=== PATIENT | male | born 1965 | race Caucasian/White ===

== ENCOUNTER 2022-01-31 09:46 | Outpatient (CLI) | payer BC, SELFPAY ==
[2022-01-31 10:35] LABS: Hematocrit 41.9 % (42.0-52.0); Hemoglobin 14.1 g/dL (14.0-18.0); Mean Corpuscular HGB Conc 33.7 g/dl (32-36); Mean Corpuscular Hemoglobin 30.9 pg (26-34); Mean Corpuscular Volume 91.9 fl (80-100); Mean Platelet Volume 10.1 fl (7.4-10.4); Platelet Count Result 253 k/mm3 (150-375); Red Blood Count 4.56 M/mm3 (4.6-6.20); Red Cell Distribution Width 13.5 % (11.5-14.5); White Blood Count 8.8 K/mm3 (4.5-10.0)
[2022-01-31 10:49] LABS: Alanine Aminotransferase 32 U/L (6-50); Albumin Level 4.2 g/dL (3.5-5.1); Alkaline Phosphatase 55 U/L (38-126); Anion Gap 9 mmol/L (8-16); Aspartate Amino Transferase 31 U/L (17-59); Bilirubin,Total 0.3 mg/dL (0.2-1.3); Blood Urea Nitrogen 18 mg/dL (9-20); CRP < 0.5 mg/dL (<1.0); Calcium 9.1 mg/dL (8.4-10.2); Carbon Dioxide 26 mmol/L (22-30); Chloride 104 mmol/L (98-107); Estimated Glomerular Filt Rate > 60; Glucose 105 mg/dL (65-110); Potassium 3.8 mmol/L (3.4-5.0); Sodium 139 mmol/L (137-145)
== END 2022-01-31 09:47 | disposition home or self-care (01) ==
LOC: ANHLAB 09:52
PROVIDERS: Visit Provider Nurse Practitioner
DX: R06.02 Shortness of breath (principal); F10.11 Alcohol abuse, in remission; R14.0 Abdominal distension (gaseous); R53.83 Other fatigue; R68.81 Early satiety
CPT/HCPCS: 36415; 80053; 84443; 85027; 86038; 86140

== ENCOUNTER 2022-03-06 01:44 | Day surgery (SDC) | payer BC, SELFPAY ==
[2022-02-22 08:17] VITALS: BMI 27.5
[2022-03-06 06:12] VITALS: BP 130/83; PULSE 68; RESP 16; TEMP 36.6; O2SAT 99; BMI 26.2
--- NOTE | 2022-03-06 06:35 | PM.HPGS ---
History of Present Illness History of Present Illness Consent: Risks, benefits, and alternatives have been discussed and questions answered. Patient agrees to proceed with procedure. Chief complaint: early satiety,abdominal distension Narrative: Andres White is a 57 year old male Who was being investigated for issues with early satiety and a significant amount of abdominal distension for about the last 2 months. He also has been fatigued and short of breath. A CT scan of the abdomen was done at another hospital that showed no significant abnormalities except that his stomach was distended with ingested contents. A surprisingly, he has not lost weight in fact reports a 30-35 lb weight loss. He is due for colon cancer screening. Review of Systems Review of Systems: All systems reviewed & are unremarkable except as noted in HPI and below PMFSH Past Medical History Medical History Decreased appetite History of ETOH abuse Tobacco abuse Surgical History Surgical History History of appendectomy Family History Family History Father Hypertension Heart disease Mother Hypertension Asthma Social History Social History Smoking packs per day: 1 Smoking cigarettes per day: 20.0 Years smoked: 40 Smoking pack-years: 40.00 Smoking status: Current every day smoker Tobacco type: cigarettes Second hand tobacco smoke exposure: Yes Alcohol intake: former Alcohol use details: Hx alcohol abuse Living arrangements: with family Gender identity (if verbalized by the patient): Male Spiritual care concerns: No Meds Home Medications and Allergies Home Medications Medication Instructions Recorded Confirmed Type furosemide 40 mg tablet (Lasix) 40 mg PO QAM 01/31/22 03/06/22 History quetiapine 50 mg tablet (Seroquel) 50 mg PO BID 01/31/22 03/06/22 History Allergies Allergy/AdvReac Type Severity Reaction Status Date / Time No Known Allergies Allergy Unknown Verified 03/06/22 06:21 Vital Signs Vital Signs - 24 hr 03/06/22 06:12 Temperature 36.6 C Pulse Rate 68 Respiratory Rate 16 Blood Pressure 130/83 Pulse Oximetry 99 Oxygen Delivery Room Air Exam Const: General: alert Orientation/consciousness: patient oriented x3 Resp: Auscultation: clear to auscultation bilaterally Cardio: Rhythm: regular rhythm GI: GI Palp: Yes Soft to palpation and No Tenderness to palpation present (GI) Neuro: General: patient oriented x3 Assessment and Plan Assessment and plan (1) Decreased appetite: Code(s): R63.0 - Anorexia Status: Acute Assessment and Plan: EGD with possible biopsy or dilatation or cautery. (2) Colon cancer screening: Code(s): Z12.11 - Encounter for screening for malignant neoplasm of colon Status: Acute Assessment and Plan: Colonoscopy with possible biopsy or polypectomy or cautery or injection of substances.
[2022-03-06] MEDS: LACTATED RINGERS 1,000 ML 150 ML IV CONT (06:36)
--- NOTE | 2022-03-06 07:22 | P.PNAN_ITS ---
Anes - Initial Pre Proc Eval Procedure: Operation Date: 03/06/22 07:30 Proposed Procedures p Esophagogastroduodenoscopy & Colonoscopy - Brian Maldonado MD Date/Time: 03/06/22 07:22 Surgeon: Brian Maldonado MD Pre Op Diagnosis: early satiety,abdominal distension Patient Data Age: 57 Gender: M Height: 1.78 m Weight: 82.8 kg Last Vital Signs Temp 97.8 F 03/06/22 06:12 Pulse 68 03/06/22 06:12 Resp 16 03/06/22 06:12 BP 130/83 03/06/22 06:12 Pulse Ox 99 03/06/22 06:12 O2 Del Method Room Air 03/06/22 06:12 Allergies Allergy/AdvReac Type Severity Reaction Status Date / Time No Known Allergies Allergy Unknown Verified 03/06/22 06:21 Home Medications Medication Instructions Recorded Confirmed Type furosemide 40 mg tablet (Lasix) 40 mg PO QAM 01/31/22 03/06/22 History quetiapine 50 mg tablet (Seroquel) 50 mg PO BID 01/31/22 03/06/22 History Patient hx anesthesia problems: none Family hx anesthesia problems: none Results Review: All pre-operative results and documents have been reviewed as part of the pre- operative evaluation. [facility] Past Medical History Medical History Decreased appetite History of ETOH abuse Tobacco abuse Surgical History Surgical History History of appendectomy Family History Family History Father Hypertension Heart disease Mother Hypertension Asthma Social History Social History Smoking packs per day: 1 Smoking cigarettes per day: 20.0 Years smoked: 40 Smoking pack-years: 40.00 Smoking status: Current every day smoker Tobacco type: cigarettes Second hand tobacco smoke exposure: Yes Alcohol intake: former Alcohol use details: Hx alcohol abuse Living arrangements: with family Gender identity (if verbalized by the patient): Male Spiritual care concerns: No Anes - Eval Final PreProcedure Day of Procedure 03/06/22 07:22 Patient weight: normal Heart: regular rate and rhythm Lungs: clear to auscultation Airway: Mallampati scale class II Neurological: alert and oriented Last oral intake: >/= 8 hours ASA classification: II Emergent: no Anesthetic plan: proceed Anesthesia type and monitoring: general GIVS and standard monitoring Results Review: All pre-operative results and documents have been reviewed as part of the pre-operative evaluation. Informed Consent: The patient's anesthetic plan and its attendant risks and benefits were discussed with the patient/family/POA. Questions were solicited and answers provided to the satisfaction of the patient/family/POA.
--- NOTE | 2022-03-06 07:46 | SUR.OPER ---
egd ended at 736 and colonoscopy started at 746.
[2022-03-06 07:59] VITALS: BP 95/65; PULSE 59; RESP 22; O2SAT 98
[2022-03-06 08:09] VITALS: BP 101/69; PULSE 53; RESP 20; O2SAT 100
[2022-03-06 08:19] VITALS: BP 130/86; PULSE 54; RESP 21; O2SAT 100
== END 2022-03-06 08:27 | disposition home or self-care (01) ==
PROVIDERS: Visit Provider Internal Medicine Gastroenterology
PROC: 0DJ08ZZ Inspection of Upper Intestinal Tract, Via Natural or Artificial Opening Endoscopic (ICD-10-PCS; CPT 43235; principal; 2022-03-06 07:30)
DX: Z12.11 Encounter for screening for malignant neoplasm of colon (principal); K29.70 Gastritis, unspecified, without bleeding; R14.0 Abdominal distension (gaseous); R63.0 Anorexia; R68.81 Early satiety; F17.210 Nicotine dependence, cigarettes, uncomplicated
CPT/HCPCS: 43239; 45378; 87081; 88305; J2704; J7120